=== PATIENT | female | born 1960 | race Caucasian/White ===

== ENCOUNTER → 2022-12-23 | Outpatient (CLI) | payer SELFPAY ==
--- NOTE | 2022-12-23 08:59 | BI_ITS ---
MAMMOGRAPHY - BILATERAL SCREENING REASON FOR EXAM: Female, 62 years old. Routine annual screening examination. PERTINENT HISTORY: Sisters with breast cancer. TECHNIQUE: Digital bilateral breast alena (3D mammographic acquisition) in the CC and MLO projections. 2-D mediolateral oblique (MLO) and craniocaudad (CC) views of both breasts were obtained. CAD: Full Field Digital Mammography with Computer Added Detection was performed. COMPARISON: Comparison is made with prior outside examination of December 14, 2018. FINDINGS: Breast Composition: The breasts are heterogeneously dense, which may obscure small masses. There are no dominant masses or suspicious calcifications. No other significant abnormalities are identified. There has been no significant change since the prior study. BI/SCRN MAMM (CAD)W/ALENA BILAT IMPRESSION: Stable bilateral screening mammogram. Yearly follow-up mammogram recommended. (A) ASSESSMENT CATEGORY: BIRADS Category 1: Negative. A letter regarding these results will be sent to the patient by the facility within 30 days. Approximately 10% of breast cancers are not detected by mammography. A normal mammogram should not delay biopsy of a clinically suspicious abnormality. [id number] Electronically Signed: Ernie Schaefer MD at 14:01 EDT ,
== END | disposition home or self-care (01) ==
PROVIDERS: PCP Family Medicine; Referring Provider Family Medicine; Visit Provider Family Medicine
DX: Z12.31 Encounter for screening mammogram for malignant neoplasm of breast (principal); Z80.3 Family history of malignant neoplasm of breast
CPT/HCPCS: 77063; 77067

== ENCOUNTER 2023-01-13 05:34 | Day surgery (SDC) | payer SELFPAY ==
[2023-01-13] VITALS (10 sets, daily range): BP systolic 86–113; BP diastolic 49–77; PULSE 58–74; RESP 12–18; TEMP 36.2–36.7; O2SAT 93–99; BMI 21.1
[2023-01-13] MEDS: Lactated Ringers 1,000 ML 15 ML IV (05:58)
--- NOTE | 2023-01-13 05:59 | HP.PCM_ITS ---
HPI - General General Date of Service: 01/13/23 Chief Complaint: Screening for intestinal cancer HPI Narrative ANNA HICKEY, is a 62 F who presents who presents for screening colonoscopy today. She has had a previous 1 approximately 8 years ago. She had a sister who at age 53 had colon cancer. The patient herself claims to be in good health. No abdominal pain no bright red blood per rectum no melena. [facility] Medical History Arthritis Non-smoker Restless legs Wears glasses Home Medications NK 11/22/22 [History Last Taken Unknown] Allergy/AdvReac Type Severity Reaction Status Date / Time No Known Allergies Allergy Verified 01/13/23 05:58 Family History (Updated 11/22/22 @ 13:08 by Rylee Clemens) Sister Colon cancer Surgical History History of colonoscopy History of hysterectomy History of tonsillectomy Social History (Updated 11/22/22 @ 13:08 by Rylee Clemens) household members: spouse current occupational status: employed Smoking Status: Never smoker ROS Constitutional Constitutional: Reports systems reviewed and no addt'l complaints, except as documented Cardiovascular Cardiovascular: Denies chest pain Respiratory/Chest Respiratory/Chest: Denies shortness of breath at rest Gastrointestinal Gastrointestinal: Denies abdominal pain, change in bowel habits, hematochezia or melena Physical Exam Const alert, oriented x3 and no apparent distress General Appearance: cooperative and comfortable Eyes General Eye: normal appearance of both eyes Neck General: normal visual inspection Chest inspection of chest normal Resp Effort and Inspection: able to speak in complete sentences and symmetric chest movement Auscultation: clear to auscultation bilaterally Cardio regular rate and regular rhythm GI soft to palpation, non-tender and non-distended Extremity no calf tenderness Neuro oriented x3 Psych thought process normal Assessment & Plan Assessment/Plan (1) Encounter for screening for malignant neoplasm of colon: PLAN: The patient presents via open access today for screening colonoscopy with possible biopsy or polypectomy as indicated. She is aware of the technique, benefit, risk, alternatives. She has had an opportunity to ask and have questions answered. We will proceed as noted. Jimmie Morales M.D., F.A.C.S.
[2023-01-13] MEDS: Midazolam 5 MG/ML Syringe (06:30)
--- NOTE | 2023-01-13 06:57 | OP.CCLET_ITS ---
01/13/2023 Frederick Gabriel Md Re : Colonoscopy procedure for Octavia Deutsch Dear Harvey This procedure was performed on Friday, January 13, 2023. My impressions and recommendations are as follows: Impressions : - Hemorrhoids found on perianal exam. - Tortuous colon. - No specimens collected. Recommendations : - Discharge patient to home. - Resume previous diet. - Continue present medications. - Repeat colonoscopy in 5 years for surveillance. My findings are described in the full procedure note, which is enclosed. If I can be of further assistance, please feel free to contact me at Doctor phone number(s): Work: . Sincerely, Jimmie Morales MD 01/13/2023 6:56:26 AM This report has been signed electronically.
--- NOTE | 2023-01-13 06:57 | OP.COLON_ITS ---
Patient Name: Octavia Deutsch Procedure Date: 01/13/2023 6:05 AM Date of : 1960 Age: 62 Procedure: Colonoscopy Indications: Screening for colorectal malignant neoplasm Providers: Jimmie Morales MD Referring MD: Frederick Gabriel Md Medicines: Midazolam 3.5 mg IV, Meperidine 100 mg IV Patient Profile: Last Colonoscopy: several years ago. Complications: No immediate complications. Procedure: Pre-Anesthesia Assessment: - Prior to the procedure, a History and Physical was performed, and patient medications and allergies were reviewed. The patient's tolerance of previous anesthesia was also reviewed. The risks and benefits of the procedure and the sedation options and risks were discussed with the patient. All questions were answered, and informed consent was obtained. Prior Anticoagulants: The patient has taken no previous anticoagulant or antiplatelet agents. ASA Grade Assessment: I - A normal, healthy patient. After reviewing the risks and benefits, the patient was deemed in satisfactory condition to undergo the procedure. After I obtained informed consent, the scope was passed under direct vision. Throughout the procedure, the patient's blood pressure, pulse, and oxygen saturations were monitored continuously. The colonoscope was introduced through the anus and advanced to the cecum, identified by appendiceal orifice and ileocecal valve. The colonoscopy was technically difficult and complex due to a tortuous colon. The patient tolerated the procedure well. The quality of the bowel preparation was adequate to identify polyps. The ileocecal valve and the appendiceal orifice were photographed. Moderate Sedation: Moderate (conscious) sedation was personally administered by the endoscopist. The following parameters were monitored: oxygen saturation, heart rate, blood pressure, and response to care. Total physician intraservice time was 15 minutes. Scope In: 6:32:28 AM Scope Withdrawal Time 0 hours 10 minutes 12 seconds Scope Out: 6:52:09 AM Total Procedure Duration Time 0 hours 19 minutes 41 seconds Findings: Hemorrhoids were found on perianal exam. The colon (entire examined portion) was moderately tortuous. Advancing the scope required changing the patient to a supine position and using manual pressure. The exam was otherwise normal throughout the examined colon. Impression: - Hemorrhoids found on perianal exam. - Tortuous colon. - No specimens collected. Recommendation: - Discharge patient to home. - Resume previous diet. - Continue present medications. - Repeat colonoscopy in 5 years for surveillance. Procedure Code(s): --- Professional --- 38974, Colonoscopy, flexible; diagnostic, including collection of specimen(s) by brushing or washing, when performed (separate procedure) 77568, 59, Moderate sedation services provided by the same physician or other qualified health career placement services counselor performing the diagnostic or therapeutic service that the sedation supports, requiring the presence of an independent trained observer to assist in the monitoring of the patient's level of consciousness and physiological status; initial 15 minutes of intraservice time, patient age 5 years or older Diagnosis Code(s): --- Professional --- Z12.11, Encounter for screening for malignant neoplasm of colon K64.9, Unspecified hemorrhoids Q43.8, Other specified congenital malformations of intestine CPT copyright 2017 [employer]. All rights reserved. The codes documented in this report are preliminary and upon deputy sheriff lieutenant review may be revised to meet current compliance requirements. Jimmie Morales MD 01/13/2023 6:56:26 AM This report has been signed electronically. Number of Addenda: 0 Note Initiated On: 01/13/2023 6:05 AM
== END 2023-01-13 07:59 | disposition home or self-care (01) ==
LOC: EN 05:34 → AC 05:35
PROVIDERS: PCP Family Medicine; Referring Provider Family Medicine; Visit Provider Surgery
PROC: 0DJD8ZZ Inspection of Lower Intestinal Tract, Via Natural or Artificial Opening Endoscopic (ICD-10-PCS; CPT 45378; principal; 2023-01-13 06:25)
DX: Z12.11 Encounter for screening for malignant neoplasm of colon (principal); K64.9 Unspecified hemorrhoids; Q43.8 Other specified congenital malformations of intestine; Z80.0 Family history of malignant neoplasm of digestive organs
CPT/HCPCS: 45378; 99152; 99153; J7120